=== PATIENT | male | born 1995 | race Caucasian/White ===

== ENCOUNTER 2023-06-01 23:55 | Emergency (ER) | payer MEDICAID ==
[~2023-06-01] VITALS: Ht 175.3 cm; Wt 72.6 kg
[2023-06-02 00:04] VITALS: BP 137/84; PULSE 104; RESP 18; TEMP 97; O2SAT 94
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
[2023-06-02 00:13] VITALS: BP 137/84; PULSE 104; RESP 18; TEMP 97; O2SAT 94
--- NOTE | 2023-06-02 00:20 | NUR ---
Patient taken to radiology.
--- NOTE | 2023-06-02 03:00 | NUR ---
PT CALLED IN LOBBY, LOOKED OUTSIDE. NO ANSWER.
--- NOTE | 2023-06-02 03:15 | NUR ---
PT CALLED, PER REGISTRATION PT CALLED SOMEONE ON THE PHONE AND WALKED OUT
--- NOTE | 2023-06-02 03:29 | NUR ---
PT CALLED, NO ANSWER. WILL REMOVE PT LWOT
== END 2023-06-02 03:29 | disposition left against medical advice (07) ==
LOC: MED 23:55
DX: S09.90XA Unspecified injury of head, initial encounter (principal); Z02.89 Encounter for other administrative examinations; V89.2XXA Person injured in unspecified motor-vehicle accident, traffic, initial encounter; Y93.89 Activity, other specified; Y92.89 Other specified places as the place of occurrence of the external cause; Y99.8 Other external cause status
CPT/HCPCS: 70450; 71045; 99284